=== PATIENT | female | born 1950 | race Caucasian/White ===

== ENCOUNTER 2024-06-11 17:16 | Inpatient (IN) | payer MEDICARE, OTHER ==
[~2024-06-11] VITALS: Ht 167.6 cm; Wt 108.0 kg
[2024-06-11 18:29] LABS: BASOPHILS % (AUTO) 0.6 % (0.0-2.0); EOSINOPHILS # (AUTO) 0.3 K/uL (0.0-0.7); EOSINOPHILS % (AUTO) 5.2 % (0.0-6.0); HEMATOCRIT 27 % (33-45); HEMOGLOBIN 9.1 g/dL (11.5-14.8); LYMPHOCYTES # (AUTO) 2.4 K/uL (0.8-4.8); LYMPHOCYTES % (AUTO) 36.6 % (20.0-44.0); MEAN CORPUSCULAR HEMOGLOBIN 33 PG (26.0-33.0); MEAN CORPUSCULAR HGB CONC 34 g/dl (31.0-36.0); MEAN CORPUSCULAR VOLUME 100 fL (82-100); MONOCYTES # (AUTO) 0.3 K/uL (0.1-1.30); MONOCYTES % (AUTO) 5.3 % (2.0-12.0); NEUTROPHILS # (AUTO) 3.4 K/uL (1.8-8.9); NEUTROPHILS % (AUTO) 52.3 % (43.0-81.0); PLATELET COUNT (AUTO) 201 K/uL (150-450); RED BLOOD CELL COUNT(AUTO) 2.72 MIL/uL (4.0-5.2); RED CELL DISTRIBUTION WIDTH 13.9 % (11.5-15.0); WHITE BLOOD COUNT (AUTO) 6.5 K/uL (4.3-11.0)
[2024-06-11 18:42] LABS: ALANINE AMINOTRANSFERASE 11 U/L (12-78); ALBUMIN 2.9 g/dL (3.4-5.0); ALCOHOL, BLOOD < 3 mg/dL (0-10); ALKALINE PHOSPHATASE 65 U/L (46-116); ASPARTATE AMINOTRANSFERASE 14 U/L (15-37); BILIRUBIN,DIRECT 0.1 mg/dL (0.0-0.2); BILIRUBIN,TOTAL 0.3 mg/dL (0.2-1.0); CALCIUM, SERUM 8.6 mg/dL (8.5-10.1); CARBON DIOXIDE 26 mmol/L (21-32); CHLORIDE 113 mmol/L (98-107); CREATININE 3.6 mg/dL (0.6-1.3); GLUCOSE 104 mg/dL (74-106); POTASSIUM 4.4 mmol/L (3.5-5.1); SODIUM SERUM 144 mmol/L (136-145); TOTAL PROTEIN, SERUM 6.4 g/dL (6.4-8.2); UREA NITROGEN, BLOOD 28 mg/dL (7-18)
[2024-06-11 18:43] LABS: ACETAMINOPHEN <10 ug/ml (10-30)
[2024-06-11] MEDS ORDERED: HYDR-4076 PO (19:30)
[2024-06-11] MEDS ORDERED: MORP100S3 PO (19:30)
[2024-06-11] MEDS ORDERED: BISA10SU11 RC (19:30)
[2024-06-11] MEDS ORDERED: ACET325T53 PO (19:30)
[2024-06-11] MEDS ORDERED: LORA-259 PO (19:30)
[2024-06-11] MEDS ORDERED: ACET650S11 RC (19:30)
[2024-06-11] MEDS ORDERED: HYOS-27 PO (19:30)
[2024-06-11] MEDS ORDERED: LEVO75TA7 PO (19:30)
[2024-06-11] MEDS ORDERED: FERR325T23 PO (19:30)
[2024-06-11] MEDS ORDERED: ONDA-97 PO (19:30)
[2024-06-11] MEDS ORDERED: LORA2VIA6 IM (19:30)
[2024-06-11] MEDS ORDERED: DOCU250C14 PO (19:30)
[2024-06-11] MEDS: IV NS 0.9% 1,000 ML BAG IV ONE (20:00)
[2024-06-11] MEDS ORDERED: LORAZEPAM INJ 2 MG/ML VIAL ONE (21:25)
[2024-06-11] MEDS: LORAZEPAM INJ 2 MG/ML VIAL IM ONE (21:27)
[2024-06-11 21:34] VITALS: O2SAT 96
[2024-06-11] MEDS ORDERED: ACETAMINOPHEN 650 MG/SUPP.RECT RC PRN (23:00)
[2024-06-11] MEDS ORDERED: BISACODYL SUPP (10 MG) 10 MG/SUPP.RECT SUPP.RECT RC PRN (23:00)
[2024-06-11] MEDS ORDERED: LORAZEPAM INJ 2 MG/ML VIAL IM PRN (23:00)
[2024-06-11] MEDS ORDERED: ACETAMINOPHEN 325 MG TABLET PO PRN ×2 (23:00)
[2024-06-11] MEDS ORDERED: Z GUARD REMEDY 4 OZ OINT TP PRN (23:00)
[2024-06-11] MEDS ORDERED: MORPHINE SULFATE SOLN CONCENTRATED 20 MG/ML PO PRN (23:00)
[2024-06-11] MEDS ORDERED: MAGNESIUM HYDROXIDE 30 ML UDC PO PRN (23:00)
[2024-06-11] MEDS ORDERED: Medication Not On Formulary EA (Ondansetron Hcl 4 MG) PO PRN (23:00)
[2024-06-11] MEDS ORDERED: MAG HYDROX/AL HYDROX/SIMETH 30 ML UDC PO PRN (23:00)
[2024-06-11] MEDS ORDERED: ONDANSETRON HCL/PF 4 MG/2 ML VIAL IVP PRN (23:00)
[2024-06-11] MEDS ORDERED: ZOLPIDEM TARTRATE 5 MG TABLET PO PRN (23:00)
[2024-06-11] MEDS ORDERED: HYOSCYAMINE SULFATE 0.125 MG TAB.SUBL SL PRN (23:30)
[2024-06-12 00:25] VITALS: BP 173/66; TEMP 98.1; O2SAT 95
[2024-06-12] MEDS: IV 1/2NS 1000 ML 1,000 ML IV PRN (02:13)
[2024-06-12 07:00] VITALS: BP 185/86; TEMP 97.5; O2SAT 96
[2024-06-12] MEDS: LEVOTHYROXINE SODIUM 75 MCG TABLET PO SCH (07:46)
[2024-06-12] MEDS: PANTOPRAZOLE 40 MG TABLET.DR PO SCH (07:46)
[2024-06-12] MEDS: FERROUS SULFATE (325 MG) 325 MG/TAB TABLET PO SCH (08:09)
[2024-06-12] MEDS: LORAZEPAM 1 MG TABLET PO SCH ×2 (08:09→17:38)
[2024-06-12] MEDS: hydrALAZINE HCL 25 MG TABLET PO SCH (08:09)
[2024-06-12] MEDS: DOCUSATE SODIUM 250 MG CAPSULE PO SCH (08:09)
[2024-06-12] MEDS: risperiDONE 0.25 MG TABLET PO SCH (14:22)
[2024-06-12 15:32] LABS: BASOPHILS % (AUTO) 0.6 % (0.0-2.0); EOSINOPHILS # (AUTO) 0.3 K/uL (0.0-0.7); EOSINOPHILS % (AUTO) 3.8 % (0.0-6.0); HEMATOCRIT 28 % (33-45); HEMOGLOBIN 9.7 g/dL (11.5-14.8); LYMPHOCYTES # (AUTO) 2.5 K/uL (0.8-4.8); LYMPHOCYTES % (AUTO) 32.5 % (20.0-44.0); MEAN CORPUSCULAR HEMOGLOBIN 33 PG (26.0-33.0); MEAN CORPUSCULAR HGB CONC 34 g/dl (31.0-36.0); MEAN CORPUSCULAR VOLUME 96 fL (82-100); MONOCYTES # (AUTO) 0.4 K/uL (0.1-1.30); NEUTROPHILS # (AUTO) 4.4 K/uL (1.8-8.9); NEUTROPHILS % (AUTO) 58.1 % (43.0-81.0); PLATELET COUNT (AUTO) 195 K/uL (150-450); RED BLOOD CELL COUNT(AUTO) 2.95 MIL/uL (4.0-5.2); RED CELL DISTRIBUTION WIDTH 13.8 % (11.5-15.0); WHITE BLOOD COUNT (AUTO) 7.6 K/uL (4.3-11.0)
[2024-06-12 16:17] LABS: APPEARANCE,URINE CLEAR (CLEAR); BILIRUBIN,URINE NEGATIVE (NEGATIVE); BLOOD, URINE TRACE-INTA Ery/uL (NEGATIVE); COLOR,URINE YELLOW (YELLOW); KETONES,URINE NEGATIVE (NEGATIVE); LEUKOCYTE ESTERASE ,URINE 1+ (NEGATIVE); NITRITE, URINE NEGATIVE (NEGATIVE); PROTEIN,URINE 3+ mg/dl (NEGATIVE); UGLUCOSE TRACE mg/dL (NEGATIVE); UROBILINOGEN,URINE 0.2 EU/dL (0.2)
[2024-06-12 16:18] LABS: CARBON DIOXIDE 25 mmol/L (21-32); CHLORIDE 110 mmol/L (98-107); CREATININE 3.3 mg/dL (0.6-1.3); GLUCOSE 110 mg/dL (74-106); PHOSPHORUS 3.7 mg/dL (2.5-4.9); POTASSIUM 4.6 mmol/L (3.5-5.1); SODIUM SERUM 143 mmol/L (136-145); UREA NITROGEN, BLOOD 25 mg/dL (7-18)
[2024-06-12 16:31] LABS: SQUAMOUS EPITHELIAL CELL,UR Few /HPF (None Seen)
[2024-06-12 16:32] LABS: ADD URINE CULTURE YES; BACTERIA,URINE Moderate /HPF (None Seen); YEAST,URINE Few /HPF (None Seen)
[2024-06-12 16:33] LABS: RBC,URINE 0-2 /HPF (0-2)
[2024-06-12 16:57] LABS: AMPHETAMINE, URINE NEGATIVE (NEGATIVE); BARBITURATE, URINE NEGATIVE (NEGATIVE); BENZODIAZEPINE, URINE NEGATIVE (NEGATIVE); CANNABINOID, URINE NEGATIVE (NEGATIVE); COCCAINE, URINE NEGATIVE (NEGATIVE); OPIATE, URINE NEGATIVE (NEGATIVE); PHENCYCLIDINE SCREEN,URINE NEGATIVE (NEGATIVE)
[2024-06-12 17:03] LABS: CREATININE, URINE 59.2 MG/DL (30.0-125.0); URINE TOTAL PROTEIN 404.4 mg/dL (0-11.9)
[2024-06-12 17:11] LABS: EOSINOPHIL,URINE None Seen
[2024-06-12] MEDS: CLOTRIMAZOLE 1% 15 GM TUBE TP SCH (17:40)
[2024-06-12 20:00] VITALS: TEMP 98; O2SAT 98
[2024-06-13 16:50] VITALS: BP 136/87
[2024-06-13] MEDS ORDERED: CLOT15CR35 TP (21:00)
[2024-06-13] MEDS ORDERED: PANT40TA49 PO (21:09)
[2024-06-13] MEDS ORDERED: RISP0.5T5 PO (21:11)
[2024-06-14] MEDS ORDERED: DIVALPROEX SODIUM 125 MG TABLET.DR PO SCH (14:00)
[2024-06-14] MEDS ORDERED: risperiDONE 1 MG TABLET PO SCH (21:00)
== END 2024-06-13 18:15 | DRG 682 ==
LOC: ER 17:21 → MED 22:24 → TELE 06-12 10:33 → MED 06-12 21:58
PROVIDERS: ADMIT Student in an Organized Health Care Education/Training Program; ATTEND Nurse Practitioner Acute Care
DX: N17.0 Acute kidney failure with tubular necrosis (principal); G93.41 Metabolic encephalopathy; E44.0 Moderate protein-calorie malnutrition; F06.71 Mild neurocognitive disorder due to known physiological condition with behavioral disturbance; F32.A Depression, unspecified; D64.9 Anemia, unspecified; N18.9 Chronic kidney disease, unspecified; I12.9 Hypertensive chronic kidney disease with stage 1 through stage 4 chronic kidney disease, or unspecified chronic kidney disease; F41.9 Anxiety disorder, unspecified; I44.0 Atrioventricular block, first degree; M89.8X9 Other specified disorders of bone, unspecified site; Z87.891 Personal history of nicotine dependence; Z68.38 Body mass index [BMI] 38.0-38.9, adult; Z20.822 Contact with and (suspected) exposure to COVID-19; F29 Unspecified psychosis not due to a substance or known physiological condition; F39 Unspecified mood [affective] disorder; F25.9 Schizoaffective disorder, unspecified; Z73.6 Limitation of activities due to disability
CPT/HCPCS: 36415; 71045-TC; 76770-TC; 80048-TC; 80076-TC; 81001; 82570-TC; 83735-TC; 84100-TC; 84300-TC; 84443-TC; 85025-TC; A4223; G0378; G0480; J2060; J3490

== ENCOUNTER 2024-06-13 18:45 | Inpatient (IN) | payer MEDICARE, OTHER ==
[~2024-06-13] VITALS: Ht 167.6 cm; Wt 104.3 kg
[~2024-06-13 18:45] MED LIST: ACET325T53 PO; ACET650S11 RC; BISA10SU11 RC; DOCU250C14 PO; FERR325T23 PO; HYDR-4076 PO; HYOS-27 PO; LEVO75TA7 PO; LORA-259 PO; LORA2VIA6 IM; MORP100S3 PO; ONDA-97 PO
[2024-06-13] MEDS ORDERED: MAGNESIUM HYDROXIDE 30 ML UDC PO PRN (20:00)
[2024-06-13] MEDS ORDERED: ACETAMINOPHEN 325 MG TABLET PO PRN (20:00)
[2024-06-13] MEDS ORDERED: ZOLPIDEM TARTRATE 5 MG TABLET PO PRN (20:00)
[2024-06-13] MEDS ORDERED: MAG HYDROX/AL HYDROX/SIMETH 30 ML UDC PO PRN (20:00)
[2024-06-13] MEDS: BLOOD SUGAR DIAGNOSTIC 1 EACH STRIP IN ONE (20:37)
[2024-06-13 21:00] VITALS: BP 125/74; TEMP 98; O2SAT 98
[2024-06-13] MEDS ORDERED: CLOT15CR35 TP (21:00)
[2024-06-13] MEDS ORDERED: PANT40TA49 PO (21:09)
[2024-06-13] MEDS ORDERED: RISP0.5T5 PO (21:11)
[2024-06-13 21:47] VITALS: BP 125/74; TEMP 98.2; O2SAT 98
[2024-06-14] MEDS ORDERED: ACETAMINOPHEN 325 MG TABLET PO PRN
[2024-06-14] MEDS ORDERED: BISACODYL SUPP (10 MG) 10 MG/SUPP.RECT SUPP.RECT RC PRN
[2024-06-14] MEDS ORDERED: ACETAMINOPHEN 650 MG/SUPP.RECT RC PRN
[2024-06-14] MEDS ORDERED: HYOSCYAMINE SULFATE 0.125 MG TAB.SUBL SL PRN (00:30)
[2024-06-14] MEDS ORDERED: ONDANSETRON 4 MG TAB.RAPDIS PO PRN (00:30)
[2024-06-14] MEDS: LEVOTHYROXINE SODIUM 75 MCG TABLET PO SCH (07:30)
[2024-06-14] MEDS: PANTOPRAZOLE 40 MG TABLET.DR PO SCH (07:30)
[2024-06-14 08:00] VITALS: BP 159/84; TEMP 97.9; O2SAT 96
[2024-06-14] MEDS: hydrALAZINE HCL 25 MG TABLET PO SCH (09:00)
[2024-06-14] MEDS: FERROUS SULFATE (325 MG) 325 MG/TAB TABLET PO SCH (09:00)
[2024-06-14] MEDS: DOCUSATE SODIUM 250 MG CAPSULE PO SCH (09:00)
[2024-06-14] MEDS: CEPHALEXIN MONOHYDRATE 500 MG CAPSULE PO SCH (09:00)
[2024-06-14] MEDS: Z GUARD REMEDY 4 OZ OINT TP SCH (10:02)
[2024-06-14] MEDS: CLOTRIMAZOLE 1% 15 GM TUBE TP SCH (10:02)
[2024-06-14] MEDS: Z GUARD REMEDY 4 OZ OINT TP PRN (15:58)
[2024-06-14 16:00] VITALS: BP 156/71; TEMP 98.3; O2SAT 95
[2024-06-14] MEDS: risperiDONE 1 MG TABLET PO SCH (21:05)
[2024-06-14] MEDS: DIVALPROEX SODIUM 125 MG CAP.SPRINK PO SCH (21:05)
[2024-06-14 21:09] VITALS: BP 139/74; TEMP 98; O2SAT 98
[2024-06-15 08:00] VITALS: BP 160/67; TEMP 97.9; O2SAT 96
[2024-06-15] MEDS: risperiDONE 1 MG TABLET PO SCH (09:00)
[2024-06-15 16:00] VITALS: BP 148/56; TEMP 98.3; O2SAT 97
[2024-06-17 08:00] VITALS: BP 146/74; TEMP 98.7; O2SAT 97
[2024-06-17] MEDS: risperiDONE 1 MG TABLET PO SCH (20:53)
[2024-06-17] MEDS: OLANZAPINE 10 MG VIAL IM PRN (21:00)
[2024-06-18] MEDS: DIVALPROEX SODIUM 125 MG CAP.SPRINK PO SCH (17:00)
[2024-06-19] MEDS: risperiDONE 1 MG TABLET PO SCH (20:50)
[2024-06-20 08:00] VITALS: BP 138/60; TEMP 97.9; O2SAT 94
[2024-06-20] MEDS: OLANZAPINE 10 MG VIAL IM PRN (09:07)
[2024-06-20 16:14] VITALS: BP_SYST 138; BP_SYST 150; BP_DIAS 60; BP_DIAS 66; TEMP 98.2; O2SAT 95
[2024-06-20 20:00] VITALS: BP 157/64; TEMP 98.4; O2SAT 94
[2024-06-20] MEDS: ZOLPIDEM TARTRATE 5 MG TABLET PO PRN (22:51)
[2024-06-21 08:00] VITALS: BP 132/67; TEMP 97.7; O2SAT 96
[2024-06-21 16:08] VITALS: BP 133/54; TEMP 98.6; O2SAT 96
[2024-06-21 20:00] VITALS: BP 165/66; TEMP 98.5; O2SAT 95
[2024-06-22 08:00] VITALS: BP 160/64; TEMP 98; O2SAT 98
[2024-06-22] MEDS: PALIPERIDONE PALMITATE 234 MG/1.5 ML SYRINGE IM ONE (13:06)
[2024-06-22] MEDS: risperiDONE 1 MG TABLET PO SCH (20:17)
[2024-06-22 20:37] VITALS: BP 133/78; TEMP 98; O2SAT 98
[2024-06-23 08:00] VITALS: BP 136/56; TEMP 97.8; O2SAT 97
[2024-06-23 16:02] VITALS: BP 160/89; TEMP 98.3; O2SAT 97
[2024-06-23] MEDS: risperiDONE-M 0.5 MG TAB.RAPDIS PO SCH (21:14)
[2024-06-26 16:00] VITALS: BP 141/69; TEMP 98.9; O2SAT 96
[2024-06-26 20:00] VITALS: BP 140/58; TEMP 98.7; O2SAT 96
[2024-06-27 08:19] VITALS: BP 141/67; TEMP 98; O2SAT 97
[2024-06-27 15:48] VITALS: BP 138/64; TEMP 98.1; O2SAT 95
[2024-06-27 20:00] VITALS: BP 132/69; TEMP 98.3; O2SAT 99
[2024-06-28 08:00] VITALS: BP 129/60; TEMP 98.1; O2SAT 98
[2024-06-28] MEDS: PALIPERIDONE PALMITATE 156 MG/ML SYRINGE IM ONE (14:41)
[2024-06-28 16:00] VITALS: BP 154/82; TEMP 98; O2SAT 95
[2024-06-29 08:00] VITALS: BP 140/70; TEMP 97.7; O2SAT 98
[2024-06-29 16:00] VITALS: BP 136/71; TEMP 97.6; O2SAT 96
[2024-06-30 08:00] VITALS: BP 166/76; TEMP 98; O2SAT 98
[2024-06-30 16:00] VITALS: BP 166/85; TEMP 97.5; O2SAT 95
[2024-07-01 08:00] VITALS: BP 154/66; TEMP 98.7; O2SAT 98
[2024-07-01 08:03] LABS: BASOPHILS % (AUTO) 0.7 % (0.0-2.0); EOSINOPHILS # (AUTO) 0.2 K/uL (0.0-0.7); EOSINOPHILS % (AUTO) 4.6 % (0.0-6.0); HEMATOCRIT 27 % (33-45); HEMOGLOBIN 8.9 g/dL (11.5-14.8); LYMPHOCYTES # (AUTO) 1.6 K/uL (0.8-4.8); LYMPHOCYTES % (AUTO) 35.8 % (20.0-44.0); MEAN CORPUSCULAR HEMOGLOBIN 32 PG (26.0-33.0); MEAN CORPUSCULAR HGB CONC 34 g/dl (31.0-36.0); MEAN CORPUSCULAR VOLUME 96 fL (82-100); MONOCYTES # (AUTO) 0.3 K/uL (0.1-1.30); MONOCYTES % (AUTO) 5.8 % (2.0-12.0); NEUTROPHILS # (AUTO) 2.3 K/uL (1.8-8.9); NEUTROPHILS % (AUTO) 53.1 % (43.0-81.0); PLATELET COUNT (AUTO) 151 K/uL (150-450); RED BLOOD CELL COUNT(AUTO) 2.75 MIL/uL (4.0-5.2); RED CELL DISTRIBUTION WIDTH 13.6 % (11.5-15.0); WHITE BLOOD COUNT (AUTO) 4.3 K/uL (4.3-11.0)
[2024-07-01 08:17] VITALS: BP 154/66
[2024-07-01 08:18] LABS: ALBUMIN 3.2 g/dL (3.4-5.0); BILIRUBIN,TOTAL 0.2 mg/dL (0.2-1.0); CALCIUM, SERUM 8.6 mg/dL (8.5-10.1); CREATININE 3.7 mg/dL (0.6-1.3); POTASSIUM 4.8 mmol/L (3.5-5.1); TOTAL PROTEIN, SERUM 6.8 g/dL (6.4-8.2)
== END 2024-07-01 13:25 | DRG 885 ==
LOC: GPS 18:45
PROVIDERS: ADMIT Psychiatry & Neurology Psychiatry; ATTEND Student in an Organized Health Care Education/Training Program
DX: F25.9 Schizoaffective disorder, unspecified (principal); N18.9 Chronic kidney disease, unspecified; N17.0 Acute kidney failure with tubular necrosis; G93.41 Metabolic encephalopathy; N39.0 Urinary tract infection, site not specified; G93.40 Encephalopathy, unspecified; E44.0 Moderate protein-calorie malnutrition; F06.71 Mild neurocognitive disorder due to known physiological condition with behavioral disturbance; I12.9 Hypertensive chronic kidney disease with stage 1 through stage 4 chronic kidney disease, or unspecified chronic kidney disease; E03.9 Hypothyroidism, unspecified; E88.09 Other disorders of plasma-protein metabolism, not elsewhere classified; F32.9 Major depressive disorder, single episode, unspecified; M89.8X9 Other specified disorders of bone, unspecified site; Z87.891 Personal history of nicotine dependence; Z20.822 Contact with and (suspected) exposure to COVID-19; F39 Unspecified mood [affective] disorder; Z73.6 Limitation of activities due to disability; D64.9 Anemia, unspecified; Z68.37 Body mass index [BMI] 37.0-37.9, adult; F29 Unspecified psychosis not due to a substance or known physiological condition; Z79.899 Other long term (current) drug therapy; B96.89 Other specified bacterial agents as the cause of diseases classified elsewhere
CPT/HCPCS: 36415; 80053-TC; 80164-TC; 85025-TC; 87081-TC; 97110-TC; 97164; 97530-TC; J2426; J3490